=== PATIENT | female | born 1995 | race Caucasian/White ===

== ENCOUNTER 2019-08-11 23:18 | Emergency (ER) | payer MEDICAID, SELFPAY ==
[2019-08-11 23:29] VITALS: BP 121/76; PULSE 109; RESP 20; TEMP 37.7; O2SAT 96; BMI 39.3
--- NOTE | 2019-08-12 00:57 | XR_ITS ---
WS: [id number] XR chest 1V portable [id number] REASON FOR EXAM: cough/congestion FINDINGS: The heart and mediastinal interfaces normal. The lung howe are well aerated. There is no pneumonia, pleural effusion, pulmonary edema, mass effe ct, or pneumothorax. The hilum and apices normal. No osseous abnormalities. XR/XR chest 1V portable [id number] IMPRESSION: No active cardiopulmonary changes.
[2019-08-12] MEDS: albuterol 8 gm MDI 2 PUFF INHALATION (01:43)
[2019-08-12 01:44] VITALS: PULSE 120; RESP 18; O2SAT 95
[2019-08-12 01:47] LABS: Influenza A by IFA Negative (Negative); Influenza B by IFA Negative (Negative)
--- NOTE | 2019-08-12 01:52 | ED_ITS ---
HPI - URI/Sore Throat General: Chief Complaint: Upper Respiratory Infection Stated Complaint: COUGH Time Seen by Provider: 08/12/19 00:56 Source: patient Mode of arrival: ambulatory Limitations: no limitations History of Present Illness: HPI Narrative: Patient is a 24-year-old female who presents to ED today with complaints of a productive cough times a month. She complains of chills and sweating but no documented fevers. Complains of a sore throat. Reports pain in her chest with coughing. Denies sinus pain/pressure or nasal congestion. MD elicited complaint: cough Pertinent past history: asthma and other (QD smoker) Onset (ago): week(s) Consistency: intermittent Able to tolerate fluids by mouth: Yes Exacerbating factors: nothing Relieving factors: nothing Associated symptoms: Reports no associated symptoms and chills; Deny abdominal pain, chest pain (only when coughing ), diarrhea, ear or mastoid pain, fever(s), headache(s), nasal congestion, nausea, sinus pain or vomiting Treatments prior to arrival: none Review of Systems Const: Reports: chills; Denies: fever, body aches, change in appetite, change in weight, fatigue or malaise Eyes: Denies: change in vision, blurry vision, photophobia, eye discomfort or eye discharge ENMT: Reports: painful swallowing; Denies: throat pain, enlarged tonsils, swelling of lips/tongue, oral sores/lesions, ear pain, ear discharge, nasal discharge, nasal congestion, post nasal drip or facial/sinus pain Card: Denies: chest pain (only when coughing ), palpitations, irregular heart rhythm, edema, lightheadedness, syncope, pre-syncope or shortness of breath when lying down Resp: Reports: productive cough, pain on inspiration and chest congestion; Denies: shortness of breath, non-productive cough or coughing up blood GI: Denies: abdominal pain, nausea, vomiting or diarrhea Musc: Denies: neck pain or back pain Skin/Breast: Denies: rash Neuro: Denies: headache All/Imm: Denies: facial swelling or seasonal allergies PFSH ED PFSH: Social History Smoking and tobacco status: current every day smoker Physical Exam Const: COMMON NORMALS: no apparent distress, oriented x3, no limitations and alert NUTRITIONAL APPEARANCE: obese HENMT: COMMON NORMALS: normocephalic, head/scalp atraumatic, hearing grossly normal bilaterally, external ears normal, EAC's normal, TM's normal bilaterally, external nose normal, nasal mucous membranes and turbinates normal, moist oral mucous membranes and oropharynx normal HEAD & SCALP: normocephalic and atraumatic FACE & SINUS: normal facial exam and sinuses nontender NOSE: external nose normal and nasal mucous membranes and turbinates normal EXTERNAL EAR: Yes external ears normal EXTERNAL AUDITORY CANAL: EAC's normal TYMPANIC MEMBRANE: TM's normal bilaterally THROAT: posterior oropharynx normal, tonsils normal and uvula midline Eye: COMMON NORMALS: PERRL, EOMs intact bilaterally and conjunctivae normal CONJUNCTIVA: Yes conjunctivae normal PUPIL: Yes PERRL Neck/C-Spine: COMMON NORMALS: no lymphadenopathy Resp: COMMON NORMALS: normal respiratory effort AUSCULTATION: wheezes (faint-anterior KHANH, RUL) Cardio: COMMON NORMALS: regular rate and regular rhythm RATE: regular rate RHYTHM: regular rhythm Neuro: COMMON NORMALS: oriented x3 SENSORIUM/ORIENTATION: Yes alert Skin: COMMON NORMALS: no rashes or lesions noted GENERAL SKIN EXAM: no rashes or lesions noted Course Vital Signs: Vital signs: Vital Signs Temperature 99.9 F H 08/11/19 23:29 Pulse Rate 120 H 08/12/19 01:44 Respiratory Rate 18 08/12/19 01:44 Blood Pressure 121/76 08/11/19 23:29 Pulse Oximetry 95 08/12/19 01:44 MDM - URI/Sore Throat Lab Data: Labs: Lab Results 08/12/19 Range/Units 01:05 Influenza Type A A g Negative (Negative) POC Influenza B Ag Negative (Negative) Imaging Data^: CXR: My impression: NAD Discharge Plan Discharge Patient Disposition: Home, Self-Care Clinical Impression: Bronchitis Condition: Stable Prescriptions: New doxycycline hyclate 100 mg tablet 100 mg PO BID 7 Days Qty: 14 RF: 0 prednisone 10 mg tablet 60 mg PO DAILY 5 Days Qty: 30 RF: 0 Discharge Orders: Discharge Order (Routine); Ordered 08/12/19 Ordered By: Melisa Whiteside Referrals: Fallon Lang MD [Family Provider] - Discharge Diet: Usual diet Discharge Activity: Increase activity as tolerated Patient Instructions: Bronchitis (Acute) - Adult, Acute Bronchitis (ED) Activity Restrictions/Additional Instructions: Follow up with primary care in 1-2 week for continued symptoms. 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
[2019-08-12 02:10] VITALS: BP 133/74; PULSE 110; RESP 18; O2SAT 93
== END 2019-08-12 02:11 | disposition home or self-care (01) ==
PROVIDERS: Emergency Medicine; Emergency Provider Physician Assistant; Family Provider Family Medicine
DX: J45.909 Unspecified asthma, uncomplicated (principal); E66.9 Obesity, unspecified; Z68.39 Body mass index [BMI] 39.0-39.9, adult; F17.200 Nicotine dependence, unspecified, uncomplicated
CPT/HCPCS: 71045; 87804; 94640; 99281; 99283; J3535

== ENCOUNTER 2020-01-20 14:38 | Emergency (ER) | payer MEDICAID, SELFPAY ==
[2020-01-20 14:40] VITALS: BP 146/92; PULSE 102; RESP 18; TEMP 37.1; O2SAT 98; BMI 38.5
--- NOTE | 2020-01-20 14:42 | ED_ITS ---
HPI - Headache General: Chief Complaint: Head Injury Stated Complaint: really bad headache Time Seen by Provider: 01/20/20 14:42 History of Present Illness: HPI Narrative: 25-year-old female presents with headache. She has a history of migraines. She has not on anything for prophylaxis for migraine she was on several antihypertensives but stopped those. Describes the headaches as being bilateral in the frontal area. She gets nausea but no vomiting she does not have any photophobia or photophobia. This current headache started 3 days ago and is feeling progressively worse. She stopped her antihypertensive 2 days ago. She is taken Tylenol and various [id number] migraine preparations without any significant relief. MD elicited complaint: headache Onset (ago): day(s) (3) Onset description: gradually Location: frontal Severity: severe Quality & Timing: throbbing and pulsatile Exacerbating factors: none Relieving factors: nothing Associated symptoms: Reports weakness; Deny chest pain, cough, diaphoresis, eye pain, eye redness, fever(s), lightheadedness, loss of vision, malaise, nausea, neck stiffness, photophobia, rash, seizures, short of breath, sound sensitivity, syncope or vomiting Treatments prior to arrival: acetaminophen and migraine medication Review of Systems Const: Denies: fever(s), malaise or diaphoresis ENMT: Denies: throat pain, ear or mastoid pain, nasal discharge or nasal congestion Card: Denies: chest pain, lightheadedness or syncope Resp: Denies: dyspnea, productive cough or non-productive cough GI: Denies: nausea or vomiting : Denies: flank pain, difficulty voiding, dysuria, urinary frequency or urinary urgency Skin/Breast: Denies: rash PFSH ED PFSH: Medical History (Updated 01/21/20 @ 14:10 by Terrance Pierre DO) Hypertension Migraines Surgical History (Updated 01/21/20 @ 14:11 by Terrance Pierre DO) No history of previous surgery Social History Smoking and tobacco status: current every day smoker Physical Exam Const: COMMON NORMALS: no acute distress GENERAL APPEARANCE: cooperative and comfortable ORIENTATION/CONSCIOUSNESS: Yes awake, Yes oriented to person, Yes oriented to place and Yes oriented to time HENMT: COMMON NORMALS: normocephalic, atraumatic, hearing grossly normal bilaterally, external ears normal, EAC's normal, TM's normal bilaterally, Normal nasal mucous membranes and turbinates present, moist oral mucous membranes and oropharynx normal HEAD & SCALP: normocephalic and atraumatic NOSE: Normal nasal mucous membranes and turbinates present EXTERNAL EAR: Yes external ears normal EXTERNAL AUDITORY CANAL: EAC's normal TYMPANIC MEMBRANE: TM's normal bilaterally Eye: COMMON NORMALS: Equal, round and reactive pupils present, EOMs intact bilaterally, conjunctivae normal and no scleral icterus CONJUNCTIVA: Yes conjunctivae normal PUPIL: Yes Equal, round and reactive pupils present DIRECT OPHTHALMOSCOPY: No photophobia Neck/C-Spine: COMMON NORMALS: full ROM, no lymphadenopathy, supple and no JVD Lymph: LYMPHATIC: no lymphadenopathy noted and no lymphedema noted Resp: COMMON NORMALS: normal respiratory effort, No retractions, No use of accessory muscles and clear to auscultation bilaterally AUSCULTATION: clear to auscultation bilaterally Cardio: COMMON NORMALS: no JVD, regular rate, regular rhythm and No murmurs present (Cardio) RATE: regular rate RHYTHM: regular rhythm GI: COMMON NORMALS: Soft to palpation and No hepatosplenomegaly present AUSCULTATION: Yes normoactive bowel sounds PALPATION: Yes Soft to palpation, No Tenderness to palpation present (GI), No Guarding due to palpation present (GI) and Yes No hepatosplenomegaly present Extremity: COMMON NORMALS: normal to inspection, capillary refill normal, no clubbing, cyanosis or edema, no calf tenderness and no pedal edema Neuro: SENSORIUM/ORIENTATION: Yes oriented to person, Yes oriented to place and Yes oriented to time Skin: COMMON NORMALS: no rashes or lesions noted GENERAL SKIN EXAM: no rashes or lesions noted Course Vital Signs: Vital signs: Vital Signs Temperature 98.8 F 01/20/20 14:40 Pulse Rate 92 01/20/20 17:00 Respiratory Rate 14 01/20/20 17:00 Blood Pressure 112/70 01/20/20 17:00 Pulse Oximetry 100 01/20/20 17:00 MDM - Headache MDM Narrative: Medical decision making narrative: Headache improved after Depacon and IV fluids. Will discharge home on Topamax for prophylaxis promethazine for breakthrough however follow-up with primary care doctor for further medication adjustments will try to get her into see neurology as well. Return if has problems Lab Data: Labs: Lab Results 01/20/20 01/20/20 Range/Units 15:03 15:03 WBC 8.1 (4.0-10.0) 10^3/ uL RBC 4.66 (4.1-5.3) 10^6/u L Hgb 15.2 (11.5-15.3) g/dL Hct 44.7 (37.0-47.0) % MCV 95.9 (81-99) fL MCH 32.6 (28.0-34.0) pg MCHC 34.0 (30.0-36.0) g/dL RDW 12.1 (12.1-15.1) % Plt Count 273 (130-400) 10^3/c mm MPV 10.8 H (7.4-10.4) fL Neut % (Auto) 52.4 % Lymph % (Auto) 35.3 % Iron % (Auto) 4.1 % Eos % (Auto) 7.1 % Baso % (Auto) 0.7 % Neut # (Auto) 4.27 (1.8-7.7) 10^3/u L Lymph # (Auto) 2.9 (0.8-4.8) 10^3/u L Iron # (Auto) 0.3 (0.2-0.9) 10^3/u L Eos # (Auto) 0.6 (0.0-0.8) 10^3/u L Baso # (Auto) 0.1 (0.0-0.1) 10^3/u L Nucleated RBC % (a uto) 0 % Nucleated RBCs # 0.0 /100WBC Sodium 138 (136-145) mmol/L Potassium 4.2 (3.5-5.1) mmol/L Chloride 107 (98-107) mmol/L Carbon Dioxide 23 (22-29) mmol/L Anion Gap 12.2 (5-19) BUN 8 (6-20) mg/dL Creatinine 0.7 (0.5-0.9) mg/dL GFR Calculation 100.4 (90-130) mL/min Glucose 125 H (65-115) mg/dL Calculated Osmolal ity 283 L (285-295) mOsm/k g Calcium 9.4 (8.5-10.5) mg/dL Total Bilirubin 0.5 (0.15-1.2) mg/dL AST 27 (0-32) U/L ALT 27 (0-33) U/L Alkaline Phosphata se 105 (35-105) IU/L Total Protein 6.9 (6.6-8.7) g/dL Albumin 4.6 (3.5-5.2) g/dL Globulin 2.3 (1.3-4.6) g/dL Discharge Plan Discharge Patient Disposition: Home Clinical Impression: Migraine Condition: Stable Prescriptions: New Topamax 25 mg tablet 25 mg PO DAILY Qty: 30 RF: 0 promethazine 25 mg tablet 25 mg PO Q6H PRN (Reason: headache) Qty: 30 RF: 0 No Action medroxyprogesterone 1 tab PO DAILY RF: 0 Tylenol 325 mg Tablet 325 - 650 mg PO PRN PRN (Reason: Pain) RF: 0 Discharge Orders: Discharge Order (Routine); Ordered 01/20/20 Ordered By: Terrance Pierre Discharge Diet: Usual diet Discharge Activity: Increase activity as tolerated Activity Restrictions/Additional Instructions: Follow-up with your primary care doctor within 1 to 2 weeks. 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
--- NOTE | 2020-01-20 14:58 | CT_ITS ---
WS: [id number] CT HEAD TECHNIQUE: Noncontrast CT of the head obtained from the skullbase to the vertex. CLINICAL INFORMATION: recurrent headaches COMPARISON: None. DLP: 805.[address] scans at [facility] use at least one of these dose optimization techniques: automat ed exposure control; mA and/or kV adjustment per patient size (includes targeted exams where dose is matched to clinical indication); or iterative reconstruction. FINDINGS: No evidence of intracranial hemorrhage or mass effect. Ventricular system and basal cisterns are lakhani nt.No extra-axial fluid collections. No evidence of mass or mass effect. Normal woods-white differenti ation. Paranasal sinuses and mastoid air cells are well aerated. Mild mucosal thickening left sphenoid sinus . .Normal visualized soft tissues. Notified Terrance Pierre DO at 01/20/2020 4:[address]/CT head wo con* [id number] IMPRESSION: 1. No evidence of intracranial hemorrhage or mass effect. 2. Normal woods-white differentiation. 3. No acute intracranial findings.
[2020-01-20 15:11] LABS: Basophils # 0.1 10^3/uL (0.0-0.1); Basophils % 0.7 %; Eosinophils # 0.6 10^3/uL (0.0-0.8); Eosinophils % 7.1 %; Hematocrit 44.7 % (37.0-47.0); Hemoglobin 15.2 g/dL (11.5-15.3); Lymphocytes # 2.9 10^3/uL (0.8-4.8); Lymphocytes % 35.3 %; Mean Corpuscular Hemoglobin 32.6 pg (28.0-34.0); Mean Corpuscular Volume 95.9 fL (81-99); Mean Platelet Volume 10.8 fL (7.4-10.4); Monocytes # 0.3 10^3/uL (0.2-0.9); Monocytes % 4.1 %; Neutrophils # 4.27 10^3/uL (1.8-7.7); Neutrophils % 52.4 %; Nucleated Red Blood Cells % 0 %; Platelet Count 273 10^3/cmm (130-400); Red Blood Count 4.66 10^6/uL (4.1-5.3); Red Cell Distribution Width 12.1 % (12.1-15.1); White Blood Count 8.1 10^3/uL (4.0-10.0)
[2020-01-20] MEDS: sodium chloride 0.9% 1,000 ML 999 ML IV (15:23)
[2020-01-20] MEDS: metoclopramide 5 mg/mL SDV 2 mL 10 MG IVP (15:24)
[2020-01-20] MEDS: ketorolac 30 mg/mL INJ IVP (15:26)
[2020-01-20 15:28] LABS: Alanine Aminotransferase 27 U/L (0-33); Albumin Level 4.6 g/dL (3.5-5.2); Alkaline Phosphatase 105 IU/L (35-105); Blood Urea Nitrogen 8 mg/dL (6-20); Calcium 9.4 mg/dL (8.5-10.5); Carbon Dioxide 23 mmol/L (22-29); Chloride 107 mmol/L (98-107); Creatinine Clr Calc Pharmacy 156.8801; Globulin 2.3 g/dL (1.3-4.6); Glomerular Filtration Rate 100.4 mL/min (90-130); Glucose 125 mg/dL (65-115); Osmolality Calculated 283 mOsm/kg (285-295); Sodium 138 mmol/L (136-145); Total Bilirubin 0.5 mg/dL (0.15-1.2); Total Protein 6.9 g/dL (6.6-8.7)
[2020-01-20 15:30] LABS: Anion Gap 12.2 (5-19)
[2020-01-20] MEDS: valproic acid inj 500 MG in sodium chloride 0.9% 50 ML 55 MG IV (15:30)
[2020-01-20 15:31] LABS: Aspartate Amino Transferase 27 U/L (0-32); Potassium 4.2 mmol/L (3.5-5.1)
[2020-01-20 16:06] VITALS: BP 133/84; PULSE 95; RESP 14; O2SAT 100
[2020-01-20 17:00] VITALS: BP 112/70; PULSE 92; RESP 14; O2SAT 100
--- NOTE | 2020-01-21 12:35 | DCPLANNER ---
home health care case manager had message to schedule a follow up appointment for patient with Dr. Lima. home health care case manager called the office of Dr. Lima, spoke with Nayana, gave clinic patients information. A follow up appointment was scheduled for Monday, January 27, 2020 at 8:00 with Luke. Clinic will call patient with appointment information.
--- NOTE | 2020-02-21 15:52 | DCPLANNER ---
Patient did attend appointment scheduled for 01.27.[address] Lima.
== END 2020-01-20 17:01 | disposition home or self-care (01) ==
PROVIDERS: Emergency Provider Family Medicine
DX: G43.909 Migraine, unspecified, not intractable, without status migrainosus (principal); I10 Essential (primary) hypertension; F17.210 Nicotine dependence, cigarettes, uncomplicated
CPT/HCPCS: 12345; 70450; 80053; 85025; 96365; 96366; 96375; 99282; 99284; J1885; J2765; J7030

== ENCOUNTER → 2020-01-27 07:59 | Outpatient (BNVA) | payer MEDICAID, SELFPAY | PROVIDERS: Visit Provider Nurse Practitioner | DX: G43.909 Migraine, unspecified, not intractable, without status migrainosus (principal) | CPT/HCPCS: 99204 ==

== ENCOUNTER 2020-01-27 09:36 | Outpatient (CLI) | payer MEDICAID, SELFPAY ==
[2020-01-27 11:04] LABS: Thyroid Stimulating Hormone 1.57 uIU/mL (0.27-4.20)
== END 2020-01-27 09:37 | disposition home or self-care (01) ==
LOC: LAB 09:40
PROVIDERS: PCP Family Medicine; Visit Provider Nurse Practitioner
DX: G43.909 Migraine, unspecified, not intractable, without status migrainosus (principal)
CPT/HCPCS: 36415; 84443

== ENCOUNTER 2020-02-05 09:05 | Outpatient (CLI) | payer MEDICAID, SELFPAY ==
[2020-02-05] MEDS: iohexol 350 mg/mL 100 mL Btl IV (09:39)
--- NOTE | 2020-02-05 10:00 | CT_ITS ---
WS: [id number] CTA HEAD TECHNIQUE: Contrast enhanced CTA of the head with coronal and sagittal reformatted images and maximum intensity projection (MIP) images. NASCET criteria utilized. CLINICAL INFORMATION: Headache COMPARISON: CT January 20, 2020 DLP: 1315.[address] scans at [facility] use at least one of these dose optimization techniques: automat ed exposure control; mA and/or kV adjustment per patient size (includes targeted exams where dose is matched to clinical indication); or iterative reconstruction. FINDINGS: Noncontrast CT demonstrates no evidence of intracranial hemorrhage or mass effect. Ventricu lar system and basal cisterns are patent. Normal woods-white differentiation. Normal sagittal sinus. Transverse sinuses are normal. Normal sigmoid sinuses. Normal straight sinus a nd internal cerebral veins. Normal torcula. No evidence of dural sinus thrombosis. No filling defects . Basilar artery is patent. Anterior dominant circulation with persistent bilateral chemical treatment plant technician. Normal vascularity to the REHANGER territory bilaterally. Both ICAs are patent at the skull base. Normal vascularity to the ANDRES and MCA territories bilaterally . No evidence of high-grade proximal stenosis. Paranasal sinuses and mastoid air cells are well aerated. CT/CT angio head [id number] IMPRESSION: 1. No evidence of dural sinus thrombosis. No filling defects. 2. No evidence of intracranial hemorrhage or mass effect. Normal woods-white di fferentiation. 3. Persistent bilateral chemical treatment plant technician with normal variant anterior dominant circulation 4. No flow-limiting intracranial arterial stenosis
== END 2020-02-05 09:06 | disposition home or self-care (01) ==
LOC: CT 09:07
PROVIDERS: PCP Family Medicine; Visit Provider Nurse Practitioner
DX: R51 Headache (principal)
CPT/HCPCS: 70496

== ENCOUNTER 2020-12-20 12:44 | Emergency (ER) | payer BC, MEDICAID, SELFPAY ==
[2020-12-20 13:13] VITALS: BP 124/82; PULSE 98; RESP 18; TEMP 37.2; O2SAT 97; BMI 36.6
[2020-12-20 13:32] LABS: Add Urine Microscopic? NO; Charge for UA Resulting for Rev
[2020-12-20 13:33] LABS: Urine Color Yellow (Yellow)
[2020-12-20 13:34] LABS: Bilirubin Urine 1+ (Negative); Blood Urine Neg (Negative); Glucose Urine UA Norm (Normal); HCG Qualitative Urine. Positive (Negative); Ketones Urine 2+ (Negative); Leukocyte Esterase Urine Negative (Negative); Nitrate Urine Negative (Negative); Protein Urine Neg (Negative); Urine Appearance Clear (CLEAR); Urobilinogen Urine 1 mg/dL (Negative); pH Urine 6 (5-7)
--- NOTE | 2020-12-20 13:37 | USR_ITS ---
PROCEDURE INFORMATION: Exam: US First Trimester, Transabdominal Exam date and time: 12/20/2020 1:37 PM Age: 25 years old Clinical indication: complicated by abdominal or pelvic pain; Lower; First trimester; Gestational age or lmp: 9 weeks 3 days (by US today); ; Additional info: Vag pain preg TECHNIQUE: Imaging protocol: Real-time transabdominal obstetrical ultrasound of the maternal pelvis and a first trimester , less than 14 weeks 0 days, with image documentation. COMPARISON: [facility] OB > 14 weeks 10/23/2017 3:02 PM FINDINGS: Gestation: Yolk sac 0.57 cm Embryonic/ heart rate: heart rate 153 bpm. Extra-embryonic membranes/Placenta: Subchorionic hemorrhage measuring 0.6 x 1.7 x 3.9 cm estimated under 50% circumference of the gestational sac. Amniotic fluid: Amniotic fluid is normal for gestational age. BIOMETRY: Gestational age (AUA): Estimated gestational age of 9 weeks 3 days. [place]-Rump length: [place]-rump length 2.63 cm MATERNAL: Uterus: Unremarkable. Cervix: Unremarkable. Right adnexa: Unremarkable. Left adnexa: Unremarkable. Intraperitoneal space: No intraperitoneal free fluid. US/US OB <=14 wk fetus w transvag IMPRESSION: 1. Live intrauterine with estimated gestational age of 9 weeks 3 days. 2. Subchorionic hemorrhage extending less than 50% of the circumference of the gestational sac.
[2020-12-20 13:51] VITALS: BP 133/83; PULSE 81; RESP 18; O2SAT 97
[2020-12-20 13:54] LABS: SARS Covid-2 Antigen Negative (Negative)
[2020-12-20 14:21] VITALS: BP 125/63; PULSE 68; RESP 18; O2SAT 74
[2020-12-20 14:30] VITALS: BP 133/83; PULSE 79; RESP 18; O2SAT 98
[2020-12-20 15:00] VITALS: BP 125/64; PULSE 79; RESP 18; O2SAT 99
--- NOTE | 2020-12-20 16:30 | W.ED.ABDPA2 ---
Documented by User: Elsa Vijaytunde 12/20/20 16:37 HPI - Abdominal Pain General: Chief Complaint: Abdominal Pain Stated Complaint: , abdominal pain Time Seen by Provider: 12/20/20 13:31 Source: patient Mode of arrival: ambulatory Limitations: no limitations History of Present Illness: HPI narrative: 25-year-old female patient presents to the emergency department complaining of daughter jumping on her and landing on her belly. Patient states she is does not know how far along states she wants to make sure everything is okay with baby. Patient denies any back pain vaginal bleeding vaginal pain. Patient states she did have some pain when daughter jumped on her abdomen but pain has resolved at this time Associated Symptoms: Denies change in bowel habits, chills, constipation, GI cramping, diarrhea, dysuria, fever(s), hematuria, hematemesis, nausea, syncope and vomiting Review of Systems Const: Denies: fever(s), chills, body aches, change in appetite, change in weight, fatigue, malaise or diaphoresis Eyes: Denies: change in vision, blurry vision, blind spots, photophobia, eye discomfort, eye discharge, eye redness, floaters or seeing flashes ENMT: Denies: throat pain, uvular edema, enlarged tonsils, odynophagia, hoarseness, mouth pain, swelling of lips/tongue, oral sores, bleeding gums, dental pain, dry mouth, ear or mastoid pain, ear discharge, change in hearing, tinnitus, disequilibrium, nasal discharge, nasal congestion, post nasal drip or sinus pain Card: Denies: chest pain, palpitations, irregular heart rhythm, edema, swelling of feet/ankles, lightheadedness, syncope, pre-syncope, dyspnea on exertion, orthopnea, leg pain with exertion or acrocyanosis Resp: Denies: dyspnea, productive cough, non-productive cough, wheezing, stridor, pain on inspiration, change in phlegm color, hemoptysis or chest congestion GI: Denies: abdominal pain, nausea, vomiting, hematemesis, dysphagia, diarrhea, constipation, GI cramping, change in bowel habits or rectal pain : Denies: flank pain, difficulty voiding, dysuria, urinary frequency, urinary urgency, urinary hesitancy or hematuria Musc: Denies: neck pain, back pain, extremity pain, extremity swelling, joint pain, joint swelling, joint redness, joint warmth or deformity Skin/Breast: Denies: rash, pruritus, erythema, sores, new lesions, changes in skin color or dry skin Neuro: Denies: headache(s), numbness in extremities, weakness in extremities, sensory changes, lack of coordination, difficulty walking, frequent falls, dizziness, vertigo, confusion, behavioral changes, Slurred speech present, difficulty communicating thoughts or seizure-like activity Psych: Denies: anxiety, depression, suicidal ideation or homicidal ideation Endo: Denies: polyuria, polydipsia, tired all the time, cold intolerance, excessive sweating, flushing, hot flashes or heat intolerance Mukund/Lymph: Denies: easy bruising, easy bleeding, petechiae, purpura, enlarged lymph nodes or tender lymph nodes All/Imm: Denies: urticaria, throat swelling, tongue swelling, facial swelling, acute wheezing or itchy eyes PFSH ED PFSH: Medical History Hypertension Intractable headache Migraines Surgical History No history of previous surgery Family History Mother Stroke Social History Smoking and tobacco status: current every day smoker cigarettes History of recent travel: No Female Reproductive History: : 3 Physical Exam Const: COMMON NORMALS: no acute distress, average body habitus, patient oriented x3, no limitations, healthy appearing, alert and well nourished HENMT: COMMON NORMALS: normocephalic, atraumatic, hearing grossly normal bilaterally, external ears normal, EAC's normal, TM's normal bilaterally, Normal external nose present, Normal nasal mucous membranes and turbinates present, moist oral mucous membranes, oropharynx normal, dentition normal and gingiva normal HEAD & SCALP: normocephalic and atraumatic NOSE: Normal external nose present and Normal nasal mucous membranes and turbinates present EXTERNAL EAR: Yes external ears normal EXTERNAL AUDITORY CANAL: EAC's normal TYMPANIC MEMBRANE: TM's normal bilaterally THROAT: no uvular edema GI: COMMON NORMALS: Normal to inspection, nondistended, normoactive bowel sounds present, Soft to palpation, non-tender, No hepatosplenomegaly present, no masses and no bruits PALPATION: Yes Soft to palpation and Yes No hepatosplenomegaly present : COMMON NORMALS: Yes normal external appearance, Yes normal appearance of the vagina, Yes normal appearance of the cervix, Yes No adnexal tenderness and Yes no masses Neuro: COMMON NORMALS: patient oriented x3 SENSORIUM/ORIENTATION: Yes alert Psych: COMMON NORMALS: mental status grossly normal, Normal thought process present, cooperative, normal affect, speech normal, activity/motor behavior normal, denies hallucinations, denies homicidal ideation and denies suicidal ideation SPEECH: Yes normal speech THOUGHT PROCESS: Normal thought process present Course Vital Signs: Vital signs: Vital Signs Temperature 98.9 F 12/20/20 13:13 Pulse Rate 79 12/20/20 16:51 Respiratory Rate 18 12/20/20 16:51 Blood Pressure 125/64 12/20/20 16:51 Pulse Oximetry 99 12/20/20 16:51 MDM - Abdominal Pain MDM Narrative: Medical decision making narrative: Pt is well appearing non toxic and in no acute distress. Patient did not have any vaginal bleeding or vaginal pain patient and not have any pain with palpitation upon exam to abdomen. I did do an ultrasound which shows rdering Provider/Ordering MD: Elsa Cevallos NP Date of Service: 12/20/20 Procedure(s): US OB <=14 wk fetus w transvag Accession Number(s): [id number] Report Number: [id number] PROCEDURE INFORMATION: Exam: US First Trimester, Transabdominal Exam date and time: 12/20/2020 1:37 PM Age: 25 years old Clinical indication: complicated by abdominal or pelvic pain; Lower; First trimester; Gestational age or lmp: 9 weeks 3 days (by US today); ; Additional info: Vag pain preg TECHNIQUE: Imaging protocol: Real-time transabdominal obstetrical ultrasound of the maternal pelvis and a first trimester , less than 14 weeks 0 days, with image documentation. COMPARISON: [facility] OB > 14 weeks 10/23/2017 3:02 PM FINDINGS: Gestation: Yolk sac 0.57 cm Embryonic/ heart rate: heart rate 153 bpm. Extra-embryonic membranes/Placenta: Subchorionic hemorrhage measuring 0.6 x 1.7 x 3.9 cm estimated under 50% circumference of the gestational sac. Amniotic fluid: Amniotic fluid is normal for gestational age. BIOMETRY: Gestational age (AUA): Estimated gestational age of 9 weeks 3 days. Enoch-Rump length: Enoch-rump length 2.63 cm MATERNAL: Uterus: Unremarkable. Cervix: Unremarkable. Right adnexa: Unremarkable. Left adnexa: Unremarkable. Intraperitoneal space: No intraperitoneal free fluid. US/US OB <=14 wk fetus w transvag IMPRESSION: 1. Live intrauterine with estimated gestational age of 9 weeks 3 days. 2. Subchorionic hemorrhage extending less than 50% of the circumference of the gestational sac. I discussed these findings with patient. Patient states she had this with her last . Patient states she already has an appointment with her OB. Advised patient to keep this follow-up appointment. Patient again has no complaints patient is pain-free patient does not have any vaginal bleeding. Do not feel any further testing is warranted at this time. I did discuss home care and follow-up with patient patient agrees to plan. Lab Data: Labs: Lab Results 12/20/20 12/20/20 12/20/20 Range/Units 13:21 13:27 13:27 HCG, Qual Positive H (Negative) Ser , Zachary i-Qnt mIU/mL Urine Color Yellow (Yellow) Urine Appearance Clear (CLEAR) Urine pH 6 (5-7) Ur Specific Gravit y 1.020 (1.005-1.030) Urine Protein Neg (Negative) Urine Glucose (UA) Norm (Normal) Urine Ketones 2+ H (Negative) Urine Blood Neg (Negative) Urine Nitrate Negative (Negative) Urine Bilirubin 1+ H (Negative) Urine Urobilinogen 1 H (Negative) mg/dL Ur Leukocyte Jewell ase Negative (Negative) SARS-CoV-2 Ag (Rap id) Negative (Negative) 12/20/20 Range/Units 14:25 HCG, Qual (Negative) Ser , Zachary i-Qnt 06632.00 mIU/mL Urine Color (Yellow) Urine Appearance (CLEAR) Urine pH (5-7) Ur Specific Gravit y (1.005-1.030) Urine Protein (Negative) Urine Glucose (UA) (Normal) Urine Ketones (Negative) Urine Blood (Negative) Urine Nitrate (Negative) Urine Bilirubin (Negative) Urine Urobilinogen (Negative) mg/dL Ur Leukocyte Jewell ase (Negative) SARS-CoV-2 Ag (Rap id) (Negative) Discharge Plan Discharge Patient Disposition: Home Clinical Impression: confirmed by positive blood test Subchorionic hemorrhage in first trimester Qualifiers: Fetus number: single or unspecified fetus Qualified Code(s): O41.8X10 - Other specified disorders of amniotic fluid and membranes, first trimester, not applicable or unspecified Condition: Stable Prescriptions: No Action propranolol 80 mg tablet 80 mg PO BID RF: 0 Topamax 50 mg tablet 50 mg PO BID Qty: 60 RF: 0 ketorolac 10 mg tablet 10 mg PO Q6H PRN (Reason: pain) 5 Days Qty: 20 RF: 0 prednisone 10 mg tablet 10 mg PO DAILY Qty: 10 RF: 0 medroxyprogesterone 1 tab PO DAILY RF: 0 Tylenol 325 mg Tablet 325 - 650 mg PO PRN PRN (Reason: Pain) RF: 0 promethazine 25 mg tablet 25 mg PO Q6H PRN (Reason: headache) Qty: 30 RF: 0 Discharge Orders: Discharge ED (Routine); Ordered 12/20/20 Ordered By: Elsa Cevallos Other Ambulatory Orders: DME: Oxygen (Order) Timeframe: 1 Month Facility: [facility] - Location: Emergency Room Ordered By: Elsa Cevallos Referrals: Fallon Lang MD [Primary Care Provider] - Patient Instructions: Opioid Safety Activity Restrictions/Additional Instructions: PLease keep your OBGYN appointment as scheduled and return to ER with any abd pain, vaginal bleeding or any other concerns Coding Level of Care Code ED Field Sales Specialist for Chg Fwd Exam Detailed Documented by User: Elin El[place] [facility] [place]25/[place] 18:50 HPI - Abdominal Pain General: Chief Complaint: Abdominal Pain Stated Complaint: , abdominal pain Time Seen by Provider: 12/20/20 13:31 PFSH ED PFSH: Medical History Hypertension Intractable headache Migraines Surgical History No history of previous surgery Family History Mother Stroke Social History Smoking and tobacco status: current every day smoker cigarettes History of recent travel: No Course Vital Signs: Vital signs: Vital Signs Temperature 98.9 F 12/20/20 13:13 Pulse Rate 79 12/20/20 16:51 Respiratory Rate 18 12/20/20 16:51 Blood Pressure 125/64 12/20/20 16:51 Pulse Oximetry 99 12/20/20 16:51 MDM - Abdominal Pain MDM Narrative: Medical decision making narrative: Kindly see the mid level provider's note for complete history and examination. I agree with her clinical findings and her decision making. Essentially this 25 year old female who had minor trauma to her abdomen. She is in her first trimester. Evaluation unremarkable, and US showed a minor subchorionic hemorrhage. Patient is advised to f/u with an closing machine operator and to avoid strenuous activities. Medical Records: Attestation: I reviewed the patient's medical records. Lab Data: Attestation: I reviewed the patient's lab results. Labs: Lab Results 12/20/20 12/20/20 12/20/20 Range/Units 13:21 13:27 13:27 HCG, Qual Positive H (Negative) Ser , Zachary i-Qnt mIU/mL Urine Color Yellow (Yellow) Urine Appearance Clear (CLEAR) Urine pH 6 (5-7) Ur Specific Gravit y 1.020 (1.005-1.030) Urine Protein Neg (Negative) Urine Glucose (UA) Norm (Normal) Urine Ketones 2+ H (Negative) Urine Blood Neg (Negative) Urine Nitrate Negative (Negative) Urine Bilirubin 1+ H (Negative) Urine Urobilinogen 1 H (Negative) mg/dL Ur Leukocyte Jewell ase Negative (Negative) SARS-CoV-2 Ag (Rap id) Negative (Negative) 12/20/20 Range/Units 14:25 HCG, Qual (Negative) Ser , Zachary i-Qnt 70794.00 mIU/mL Urine Color (Yellow) Urine Appearance (CLEAR) Urine pH (5-7) Ur Specific Gravit y (1.005-1.030) Urine Protein (Negative) Urine Glucose (UA) (Normal) Urine Ketones (Negative) Urine Blood (Negative) Urine Nitrate (Negative) Urine Bilirubin (Negative) Urine Urobilinogen (Negative) mg/dL Ur Leukocyte Jewell ase (Negative) SARS-CoV-2 Ag (Rap id) (Negative) Imaging Data ^: US OB: Attestation: I personally reviewed and interpreted this imaging study as follows: Radiologist's impression: [email or web address] [place], [place] [id number] ReportSigned Patient: Jojo Mandujano #: [id number]: 1995Acct#:[id number]/Sex: 25 / FADM Date: 12/20/20Loc: ERRoom/Bed:Attending Dr: Ordering Provider/Ordering MD: Elsa Cevallos NP Date of Service: 12/20/20 Procedure(s): US OB <=14 wk fetus w transvag Accession Number(s): [id number] Report Number: [id number] PROCEDURE INFORMATION: Exam: US First Trimester, Transabdominal Exam date and time: 12/20/2020 1:37 PM Age: 25 years old Clinical indication: complicated by abdominal or pelvic pain; Lower; First trimester; Gestational age or lmp: 9 weeks 3 days (by US today); ; Additional info: Vag pain preg TECHNIQUE: Imaging protocol: Real-time transabdominal obstetrical ultrasound of the maternal pelvis and a first trimester , less than 14 weeks 0 days, with image documentation. COMPARISON: [facility] [place] OB > 14 weeks 10/23/2017 3:02 PM FINDINGS: Gestation: Yolk sac 0.57 cm Embryonic/ heart rate: heart rate 153 bpm. Extra-embryonic membranes/Placenta: Subchorionic hemorrhage measuring 0.6 x 1.7 x 3.9 cm estimated under 50% circumference of the gestational sac. Amniotic fluid: Amniotic fluid is normal for gestational age. BIOMETRY: Gestational age (AUA): Estimated gestational age of 9 weeks 3 days. Enoch-Rump length: Enoch-rump length 2.63 cm MATERNAL: Uterus: Unremarkable. Cervix: Unremarkable. Right adnexa: Unremarkable. Left adnexa: Unremarkable. Intraperitoneal space: No intraperitoneal free fluid. US/US OB <=14 wk fetus w transvag IMPRESSION: 1. Live intrauterine with estimated gestational age of 9 weeks 3 days. 2. Subchorionic hemorrhage extending less than 50% of the circumference of the gestational sac. Dictated By:Panda Long DOSigned By:Panda Long DOSigned Date/Time:12/20/20 1532DD/ 1531 Discharge Plan Discharge Patient Disposition: Home Clinical Impression: confirmed by positive blood test Subchorionic hemorrhage in first trimester Qualifiers: Fetus number: single or unspecified fetus Qualified Code(s): O41.8X10 - Other specified disorders of amniotic fluid and membranes, first trimester, not applicable or unspecified Condition: Stable Prescriptions: No Action propranolol 80 mg tablet 80 mg PO BID RF: 0 Topamax 50 mg tablet 50 mg PO BID Qty: 60 RF: 0 ketorolac 10 mg tablet 10 mg PO Q6H PRN (Reason: pain) 5 Days Qty: 20 RF: 0 prednisone 10 mg tablet 10 mg PO DAILY Qty: 10 RF: 0 medroxyprogesterone 1 tab PO DAILY RF: 0 Tylenol 325 mg Tablet 325 - 650 mg PO PRN PRN (Reason: Pain) RF: 0 promethazine 25 mg tablet 25 mg PO Q6H PRN (Reason: headache) Qty: 30 RF: 0 Discharge Orders: Discharge ED (Routine); Ordered 12/20/20 Ordered By: Elsa Cevallos Other Ambulatory Orders: DME: Oxygen (Order) Timeframe: 1 Month Facility: [facility] - Location: Emergency Room Ordered By: Elsa Cevallos Referrals: Fallon Lang MD [Primary Care Provider] - Patient Instructions: Opioid Safety Activity Restrictions/Additional Instructions: PLease keep your OBGYN appointment as scheduled and return to ER with any abd pain, vaginal bleeding or any other concerns Coding Level of Care Code ED Field Sales Specialist for Chg Fwd Exam Detailed
[2020-12-20 16:51] VITALS: BP 125/64; PULSE 79; RESP 18; O2SAT 99
== END 2020-12-20 16:35 | disposition home or self-care (01) ==
PROVIDERS: Emergency Provider Registered Nurse; PCP Family Medicine
DX: O41.8X10 Other specified disorders of amniotic fluid and membranes, first trimester, not applicable or unspecified (principal); O10.911 Unspecified pre-existing hypertension complicating pregnancy, first trimester; O99.331 Smoking (tobacco) complicating pregnancy, first trimester; F17.210 Nicotine dependence, cigarettes, uncomplicated; Z3A.09 9 weeks gestation of pregnancy; Z20.822 Contact with and (suspected) exposure to COVID-19
CPT/HCPCS: 76801; 76817; 81003; 81025; 84702; 87426; 99284

== ENCOUNTER 2021-07-14 08:45 | Outpatient (CLI) | payer BC, MEDICAID, SELFPAY ==
[2021-07-14 09:10] VITALS: BP 131/65; PULSE 92
[2021-07-14 09:14] VITALS: RESP 16
[2021-07-14 09:15] VITALS: BMI 32.5
[2021-07-14 09:25] VITALS: BP 129/69; PULSE 96
[2021-07-14 09:40] VITALS: BP 128/68; PULSE 81
[2021-07-14 09:55] VITALS: BP 131/68; PULSE 85
== END 2021-07-14 10:18 | disposition home or self-care (01) ==
LOC: OPOB 08:53 → OBGYN 08:54
PROVIDERS: PCP Family Medicine; Visit Provider Family Medicine
DX: O67.9 Intrapartum hemorrhage, unspecified (principal); Z3A.00 Weeks of gestation of pregnancy not specified
CPT/HCPCS: 59025; 99211

== ENCOUNTER 2021-07-15 23:57 | Inpatient (IN) | payer BC, MEDICAID, SELFPAY ==
[2021-07-15 21:39] VITALS: RESP 16
[2021-07-15 21:42] VITALS: BP 115/75; PULSE 100
[2021-07-15 21:59] VITALS: BMI 33.6
[2021-07-15 22:01] VITALS: BP 107/70; PULSE 100
[2021-07-15 22:03] LABS: Actim Prom Negative
[2021-07-15 23:14] VITALS: BP 109/66; PULSE 95
[2021-07-15 23:49] VITALS: RESP 16
[2021-07-16] VITALS (35 sets, daily range): BP systolic 101–143; BP diastolic 54–95; PULSE 64–164; RESP 16–18; TEMP 35.9–36.8; O2SAT 97–100
[2021-07-16 00:42] LABS: Basophils # 0.1 10^3/uL (0.0-0.1); Basophils % 0.4 %; Eosinophils # 0.3 10^3/uL (0.0-0.8); Eosinophils % 2.4 %; Lymphocytes # 2.5 10^3/uL (0.8-4.8); Lymphocytes % 18.9 %; Mean Corpuscular HGB Conc 34.2 g/dL (30.0-36.0); Mean Corpuscular Hemoglobin 32.9 pg (28.0-34.0); Mean Corpuscular Volume 96.2 fl (81-99); Mean Platelet Volume 10.5 fL (7.4-10.4); Monocytes # 0.8 10^3/uL (0.2-0.9); Neutrophils # 9.44 10^3/uL (1.8-7.7); Neutrophils % 71.6 %; Nucleated Red Blood Cells % 0 %; Platelet Count 210 10^3/cmm (130-400); Red Blood Count 3.95 10^6/uL (4.1-5.3); Red Cell Distribution Width 12.6 % (12.1-15.1); White Blood Count 13.2 10^3/uL (4.0-10.0)
[2021-07-16] MEDS: oxytocin 30 UNIT/500 ML BAG IV (09:50)
--- NOTE | 2021-07-16 09:58 | PM.OPHPUD ---
Labor & Delivery H&P Update Date of Procedure: July 16, 2021 Date H&P Performed: 07/13/21 Admission Diagnosis: Vaginal bleeding Other information: Patient presented to labor and delivery at 39 weeks 1 day gestation complaining of bright red vaginal bleeding. She had minimal bloody show and was found to be shantel regularly on the monitor. heart tones were reassuring. She was monitored for 2 hours to assess her bleeding, which was not active. In the 2 hours she made some cervical change and was kept for active labor.
[2021-07-16] MEDS: dextrose 5%-lactated ringers 1,000 ML 125 ML IV (10:18)
--- NOTE | 2021-07-16 11:45 | PM.DELIVERY ---
Delivery Note: Date of delivery: July 16, 2021 Estimated blood loss (mL): 250 Pre-Delivery Course: She had routine care at [facility]. There were no complications during the . Delivery: This is a 26-year-old G3, P2 at 39 weeks 1 day gestation who presented complaining of vaginal bleeding. She was found to be shantel regularly and had minimal bloody discharge. She is making cervical change although very slowly. She declined pain management. When she was 6 cm dilated she underwent artificial rupture of membranes with clear fluid. Her contractions were still palpating minimal and she was not making much cervical change so she was started on Pitocin. She had a normal spontaneous vaginal delivery of a viable female infant weight 6 pounds 14 ounces, 3120 g over an intact perineum. The infant was suctioned at delivery and placed on the mother's chest. The cord was clamped and cut. Placenta was delivered grossly intact and normal to inspection. There was a very small first-degree perineal laceration that did not require suturing. Mother and were doing well after delivery. A&P Assessment and plan (1) (normal spontaneous vaginal delivery): Routine care Status: Acute Coding Level of Care Code Acute Manager Program for Chg Fwd Diagnoses (normal spontaneous vaginal delivery) O80
[2021-07-16] MEDS: ibuprofen 800 mg tablet PO ×2 (14:14→21:14)
[2021-07-16] MEDS: lanolin oint 7 gm 1 APPLIC TOPICAL (14:15)
[2021-07-16] MEDS: benzocaine-menthol 78 gm Canister 1 SPRAY TOPICAL (14:16)
--- NOTE | 2021-07-16 14:30 | PC.NURSE ---
patient ambulated to room OB 7 without difficulty. Oriented to room, proud parent pack explained.
[2021-07-16] MEDS: docusate sodium 100 mg Capsule PO (18:46)
[2021-07-17 00:16] LABS: Hematocrit 31.8 % (37.0-47.0); Hemoglobin 10.7 g/dL (11.5-15.3); Mean Corpuscular HGB Conc 33.6 g/dL (30.0-36.0); Mean Corpuscular Hemoglobin 32.5 pg (28.0-34.0); Mean Corpuscular Volume 96.7 fl (81-99); Mean Platelet Volume 10.1 fL (7.4-10.4); Platelet Count 192 10^3/cmm (130-400); Red Blood Count 3.29 10^6/uL (4.1-5.3); Red Cell Distribution Width 12.8 % (12.1-15.1); White Blood Count 12.3 10^3/uL (4.0-10.0)
[2021-07-17 01:30] VITALS: BP 108/51; PULSE 79; RESP 16; O2SAT 98
[2021-07-17 04:55] VITALS: BP 101/51; PULSE 79; RESP 16; O2SAT 98
[2021-07-17] MEDS: ibuprofen 800 mg tablet PO (08:36)
[2021-07-17] MEDS: docusate sodium 100 mg Capsule PO (08:37)
[2021-07-17] MEDS: prenatal vitamin Capsule 1 CAP PO (08:37)
[2021-07-17 09:34] VITALS: BP 112/64; PULSE 88; RESP 17; TEMP 36.8; O2SAT 97
--- NOTE | 2021-07-17 11:16 | PM.DCS ---
Discharge Providers Date of Admission: 07/15/21 23:57 Date of Discharge: July 17, 2021 Attending Provider at Admission: Fallon Lang MD Attending Provider at Discharge: Fallon Lang MD Primary Care Provider: Fallon Lang MD Diagnoses at Discharge Discharge Diagnosis (1) (normal spontaneous vaginal delivery): Status: Acute Reason for Visit Reason for Visit: VAGINAL BLEEDING Hospital Course Hospital Course This is a 26-year-old G3 now P3 who was admitted in active labor. She had a normal spontaneous vaginal delivery of a viable female . Mother and have done well after delivery. Mother is ambulating, tolerating a regular diet, has essentially no pain and very minimal vaginal bleeding. She is comfortable with discharge home. Physical Exam Narrative: EXAM NARRATIVE: Alert and oriented, sitting up in bed holding baby, heart regular rate and rhythm, lungs clear to auscultation bilaterally, abdomen soft nontender, fundus firm U- 3, no extremity tenderness. Discharge Data Studies Completed and Pending Laboratory Results WBC 12.3 10^3/uL (4.0-10.0) H 07/17/21 00:01 RBC 3.29 10^6/uL (4.1-5.3) L 07/17/21 00:01 Hgb 10.7 g/dL (11.5-15.3) L 07/17/21 00:01 Hct 31.8 % (37.0-47.0) L 07/17/21 00:01 MCV 96.7 fl (81-99) 07/17/21 00:01 MCH 32.5 pg (28.0-34.0) 07/17/21 00:01 MCHC 33.6 g/dL (30.0-36.0) 07/17/21 00:01 RDW 12.8 % (12.1-15.1) 07/17/21 00:01 Plt Count 192 10^3/cmm (130-400) 07/17/21 00:01 MPV 10.1 fL (7.4-10.4) 07/17/21 00:01 Neut % (Auto) 71.6 % 07/16/21 00:15 Lymph % (Auto) 18.9 % 07/16/21 00:15 Gove % (Auto) 6.0 % 07/16/21 00:15 Eos % (Auto) 2.4 % 07/16/21 00:15 Baso % (Auto) 0.4 % 07/16/21 00:15 Neut # (Auto) 9.44 10^3/uL (1.8-7.7) H 07/16/21 00:15 Lymph # (Auto) 2.5 10^3/uL (0.8-4.8) 07/16/21 00:15 Gove # (Auto) 0.8 10^3/uL (0.2-0.9) 07/16/21 00:15 Eos # (Auto) 0.3 10^3/uL (0.0-0.8) 07/16/21 00:15 Baso # (Auto) 0.1 10^3/uL (0.0-0.1) 07/16/21 00:15 Nucleated RBC % (auto) 0 % 07/16/21 00:15 Nucleated RBCs # 0.0 /100WBC 07/16/21 00:15 Insulin-like GF I Negative 07/15/21 21:50 Vitals Last Vital Signs Temp 98.2 F 07/17/21 09:34 Pulse 88 07/17/21 09:34 Resp 17 07/17/21 09:34 BP 112/64 07/17/21 09:34 Pulse Ox 97 07/17/21 09:34 Discharge Plan Discharge Condition: Stable Prescriptions: No Action Gummies 400 mcg-35 mg- 25 mg-5 mg Tablet,Chewable 1 tab PO DAILY 0RF Discharge Orders: Discharge Order (Routine); Ordered 07/17/21 Ordered By: Fallon Lang Referrals: Fallon Lang MD [Primary Care Provider] - 1 month Discharge Diet: Usual diet Discharge Activity: Limit activity as instructed Patient Instructions: Depression (DC), Bleeding (DC), Preeclampsia and Eclampsia After Delivery (GEN), Vaginal Delivery (DC), OB Discharge Report, OB Food/Drug Interaction Guide, Opioid Safety, OB Home Care, OB Proud Parent Packet Discharge Attestations Time Spent in Discharge Care*: less than 30 min Quality Metrics Clinical Quality Measures [ No reported AMI, CVA or VTE this stay] Coding Level of Care Code Acute Chg FW DC note Diagnoses (normal spontaneous vaginal delivery) O80
[2021-07-17 12:57] VITALS: BP 112/84; PULSE 88; RESP 17; TEMP 36.8; O2SAT 99
[2021-07-17 13:20] VITALS: BP 112/84; PULSE 88; RESP 17; TEMP 36.8; O2SAT 99
== END 2021-07-17 13:17 | disposition home or self-care (01) | DRG 807 ==
LOC: OPOB 07-16 00:02 → OBGYN 07-16 00:02
PROVIDERS: Admitting Provider Family Medicine; PCP Family Medicine; Visit Provider Family Medicine
DX: O67.9 Intrapartum hemorrhage, unspecified (principal); Z37.0 Single live birth; O99.334 Smoking (tobacco) complicating childbirth; F17.210 Nicotine dependence, cigarettes, uncomplicated; Z3A.39 39 weeks gestation of pregnancy; O70.0 First degree perineal laceration during delivery
CPT/HCPCS: 36415; 59025; 59409; 84112; 85025; 85027; 99211

== ENCOUNTER 2022-07-01 16:29 | Outpatient (CLI) | payer BC, MEDICAID, SELFPAY ==
--- NOTE | 2022-07-01 | US_ITS ---
WS: [id number] OBSTETRICAL ULTRASOUND COMPLETE HISTORY: ANATOMY COMPARISON: None available. Single intrauterine gestation in breech presentation. Cervix is Closed and normal length. Cervical length is 3.1 cm. Normal amount of amniotic fluid surrounds the fetus. Placenta: Fundal and anterior. No previa or abruption. Placenta grade 1 Heart: 150 BPM. Four chambers are identified. RIGHT and LEFT outflow tracts are unremarkable. Anatomy: Intracranial structures are poorly visualized. This is probably due to position of the fetus . Spine is posterior during the examination. Stomach and bladder negative. Kidneys are poorly visuali zed. Abdominal wall, three-vessel cord and cord insertion site are normal. 4 extremities are present. profile: Not visualized. Gender: Male. measurements: BPD = 4.8 cm = 20w3d HC = 17.8 cm = 20w2d AC = 16.0 cm = 21w1d FL = 3.6 cm = 21w3d EFW: 400 g. Biometry is internally concordant. AGA by ultrasound: 20w6d CHAVEZ by ultrasound: 11/12/2022 US/US OB >= 14 weeks fetus [id number] IMPRESSION: 1. Single intrauterine gestation of 20w6d with an CHAVEZ of 11/12/2022. 2. Limited evaluation of the intracranial structures, spine, kidneys and profile. The remaining anatomy is negative. Consider short-term follow-up in 2 weeks.
== END 2022-07-01 16:30 | disposition home or self-care (01) ==
LOC: RAD 16:29
PROVIDERS: PCP Family Medicine; Visit Provider Family Medicine
DX: Z34.81 Encounter for supervision of other normal pregnancy, first trimester (principal)
CPT/HCPCS: 76805

== ENCOUNTER 2022-07-18 09:42 | Outpatient (CLI) | payer BC, MEDICAID, SELFPAY ==
--- NOTE | 2022-07-18 09:52 | US_ITS ---
WS: [id number] ULTRASOUND OB FOCUSED HISTORY: FOLLOW UP U/S OF ANATOMY, reevaluation intracranial structures, spine, kidneys and pro file. COMPARISON: 07/01/2022 Single intrauterine gestation identified in breech position. Cervix is closed at 3.4 cm. Placenta: Anterior and fundal. No previa. Placenta grade 1. heart rate at 153 BPM. Normal intracranial structures. spine is posterior during the examination but there is no splay ing of the lamina. The overlying skin appears intact. Small amount of fluid in the renal pelves, less than 4 mm. The urinary bladder was not imaged. Normal profile. [place] [id number] IMPRESSION: 1. Follow up evaluation of the intracranial structures and spine are normal. N ormal profile. 2. Both kidneys are identified. Very minimal fluid in the renal pelves is cons idered within normal limits and not hydronephrosis for this age.
== END 2022-07-18 09:43 | disposition home or self-care (01) ==
LOC: RAD 09:43
PROVIDERS: PCP Family Medicine; Visit Provider Family Medicine
DX: Z36.2 Encounter for other antenatal screening follow-up (principal)
CPT/HCPCS: 76816

== ENCOUNTER 2022-11-03 19:47 | Outpatient (CLI) | payer BC, MEDICAID, SELFPAY ==
[2022-11-03 19:45] VITALS: BMI 43.2
[2022-11-03 19:54] VITALS: BP 142/75; PULSE 94
[2022-11-03 20:00] VITALS: TEMP 35
[2022-11-03 20:20] VITALS: BP 135/75; PULSE 94
[2022-11-03 20:30] VITALS: BP 135/75; PULSE 94
== END 2022-11-03 20:40 | disposition home or self-care (01) ==
LOC: OPOB 19:48 → OBGYN 19:48
PROVIDERS: PCP Family Medicine; Visit Provider Family Medicine
DX: O26.899 Other specified pregnancy related conditions, unspecified trimester (principal); R10.9 Unspecified abdominal pain; Z3A.00 Weeks of gestation of pregnancy not specified
CPT/HCPCS: 59025; 99211

== ENCOUNTER 2022-11-07 16:59 | Inpatient (IN) | payer BC, MEDICAID, SELFPAY ==
[2022-11-07] VITALS (26 sets, daily range): BP systolic 119–204; BP diastolic 63–108; PULSE 69–122; RESP 15–16; TEMP 36.3; BMI 43.2
[2022-11-07] MEDS: dextrose 5%-lactated ringers 1,000 ML 125 ML IV (17:04)
[2022-11-07 17:34] LABS: Basophils # 0.1 10^3/uL (0.0-0.1); Basophils % 0.5 %; Eosinophils # 0.2 10^3/uL (0.0-0.8); Eosinophils % 1.6 %; Hematocrit 39.2 % (37.0-47.0); Hemoglobin 13.3 g/dL (11.5-15.3); Lymphocytes # 1.5 10^3/uL (0.8-4.8); Lymphocytes % 16.5 %; Mean Corpuscular HGB Conc 33.9 g/dL (30.0-36.0); Mean Corpuscular Hemoglobin 32.1 pg (28.0-34.0); Mean Corpuscular Volume 94.7 fl (81-99); Mean Platelet Volume 11.3 fL (7.4-10.4); Monocytes # 0.6 10^3/uL (0.2-0.9); Monocytes % 6.2 %; Neutrophils # 6.89 10^3/uL (1.8-7.7); Neutrophils % 74.7 %; Nucleated Red Blood Cells % 0 %; Platelet Count 191 10^3/cmm (130-400); Red Blood Count 4.14 10^6/uL (4.1-5.3); Red Cell Distribution Width 13.2 % (12.1-15.1); White Blood Count 9.2 10^3/uL (4.0-10.0)
[2022-11-07 18:13] LABS: Glucose Urine UA 1+ (Normal); Protein Urine Trace (Negative); Urine Appearance Cloudy (CLEAR); Urine Color Yellow (Yellow); pH Urine 5 (5-7)
[2022-11-07 18:14] LABS: Add Urine Culture? No; Add Urine Microscopic? YES; Bacteria Urine 1+ /hpf; Bilirubin Urine 1+ (Negative); Blood Urine Neg (Negative); Ketones Urine 1+ (Negative); Leukocyte Esterase Urine 2+ (Negative); Nitrate Urine Negative (Negative); RBC Urine 0-4 /hpf (0-2); Squamous Epithelial Cell Urine 25-40 /hpf (0-5); Urobilinogen Urine 4 mg/dL (Negative); WBC Urine 25-40 /hpf (0-5)
[2022-11-07 18:32] LABS: Urine Creatinine 222 mg/dL (28-217)
[2022-11-07 18:34] LABS: UPRO/UCREAT Ratio 0.15 mg/mg CR; Urine Protein Random 33 mg/dL
[2022-11-07 19:08] LABS: Alanine Aminotransferase 12 U/L (0-33); Albumin Level 3.1 g/dL (3.5-5.2); Alkaline Phosphatase 146 U/L (35-105); Anion Gap 11.9 (5-19); Aspartate Amino Transferase 16 U/L (0-32); Blood Urea Nitrogen 7 mg/dL (6-20); Calcium 8.3 mg/dL (8.5-10.5); Carbon Dioxide 22 mmol/L (22-29); Chloride 104 mmol/L (98-107); Globulin 2.7 g/dL (1.3-4.6); Glomerular Filtration Rate 145.9 mL/min (90-130); Glucose 98 mg/dL (65-115); Osmolality Calculated 276 mOsm/kg (285-295); Potassium 3.9 mmol/L (3.5-5.1); Sodium 134 mmol/L (136-145); Total Bilirubin 0.3 mg/dL (0.15-1.2); Total Protein 5.8 g/dL (6.6-8.7); Uric Acid 3.2 mg/dL (2.4-5.7)
--- NOTE | 2022-11-07 19:47 | P.HPUD_ITS ---
Labor & Delivery H&P Update Date of Procedure: November 07, 2022 Date H&P Performed: 11/02/22 Admission Diagnosis: IUP at 39 weeks 4 days gestation -induced hypertension Planned procedure: Induction of labor and delivery Other information: This is a 27-year-old G4, P3 at 39 weeks 4 days gestation who presented to labor and delivery complaining of contractions. She was not found to be shantel regularly and had not made cervical change however she had consistently elevated blood pressures in the 140s systolic. Since she was already at term decision wa s made to go ahead and proceed with induction. Her cervix was favorable so she was being started on Pitocin.
[2022-11-07] MEDS: lidocaine 2% INJ 20 mL INJECTION (21:18)
--- NOTE | 2022-11-07 21:34 | P.PCNOB_ITS ---
Delivery Note: Date of delivery: November 07, 2022 Pre-delivery diagnoses: -induced hypertension at 39 weeks gestation IUP at 39 weeks 4 days gestation Procedure: Normal spontaneous vaginal delivery Estimated blood loss (mL): 225 Pre-Delivery Course: The patient had routine care at [facility]. She is blood type a positive, antibody negative, hepatitis B nonreactive, hepatitis C nonreactive, HIV nonreactive, rubella immune, GC chlamydia negative, urine drug screen negative, RPR negative, she passed her glucose tolerance test, she was GBS negative. There were no complications during the Delivery: This is a 27-year-old G4, P3 at 39 weeks 4 days gestation who presented to labor and delivery complaining of contractions. She was not shantel regularly and did not make cervical change however her systolic blood pressures were elevated and she was diagnosed with -induced hypertension. Since she was already 39 weeks gestation decision was made to go ahead and induce. Her cervix was favorable and she was started on Pitocin. She declined pain management. She underwent artificial rupture of membranes approximately 1-1/2 hours prior to delivery. She had a normal spontaneous vaginal delivery of a viable male weight 3280 g, 7 pounds 4 ounces, Apgars 8 and 9 over an intact perineum. The infant was suctioned at delivery and placed on the mother's chest. The cord was clamped and cut. The placenta was delivered grossly intact and normal to inspection. There was a second-degree perineal laceration that was sutured using 3-0 chromic. There was a first-degree clitoral laceration that was felt to be hemostatic with pressure. Mother and infant were doing well after delivery. Coding Level of Care Code Acute Code for Chg Fwd Diagnoses
[2022-11-07] MEDS: benzocaine-menthol 78 gm Canister 1 SPRAY TOPICAL (22:54)
[2022-11-07] MEDS: lanolin oint 7 gm 1 APPLIC TOPICAL (22:54)
[2022-11-08] VITALS (9 sets, daily range): BP systolic 109–136; BP diastolic 54–83; PULSE 56–90; RESP 14–18; TEMP 36.7–37; O2SAT 97–99
[2022-11-08] MEDS: ibuprofen 800 mg tablet PO ×2 (09:05→20:14)
[2022-11-08] MEDS: docusate sodium 100 mg Capsule PO ×2 (09:05→20:15)
[2022-11-08] MEDS: prenatal vitamin Capsule 1 CAP PO (09:05)
[2022-11-08 09:24] LABS: Hematocrit 34.6 % (37.0-47.0); Hemoglobin 11.6 g/dL (11.5-15.3); Mean Corpuscular HGB Conc 33.5 g/dL (30.0-36.0); Mean Corpuscular Hemoglobin 32.1 pg (28.0-34.0); Mean Corpuscular Volume 95.8 fl (81-99); Mean Platelet Volume 10.7 fL (7.4-10.4); Platelet Count 157 10^3/cmm (130-400); Red Blood Count 3.61 10^6/uL (4.1-5.3); White Blood Count 8.5 10^3/uL (4.0-10.0)
--- NOTE | 2022-11-08 17:05 | P.DS_ITS ---
Discharge Providers Date of Admission: 11/07/22 16:59 Date of Discharge: November 08, 2022 Attending Provider at Admission: Fallon Lang MD Attending Provider at Discharge: Fallon Lang MD Primary Care Provider: Fallon Lang MD Reason for Visit Reason for Visit: Contractions Hospital Course Hospital Course This is a 27-year-old G4 now P4 who was admitted for induction secondary to new onset -induced hypertension at 39 weeks 4 days gestation. She had a normal spontaneous vaginal delivery of a viable male . Her blood pressures were only mildly elevated. She had a couple severe blood pressures but this was only during end-stage labor and she declined pain management. She has been ambulating, tolerating a regular diet, has average vaginal bleeding and is comfortable with discharge home. Physical Exam Narrative: Alert and oriented, sitting up in bed breast-feeding, heart regular rate and rhythm, lungs clear to auscultation bilaterally, abdomen is soft and nontender, fundus is firm and U -2, extremities have no calf tenderness Discharge Data Studies Completed and Pending Laboratory Results WBC 8.5 10^3/uL (4.0-10.0) 11/08/22 09:10 RBC 3.61 10^6/uL (4.1-5.3) L 11/08/22 09:10 Hgb 11.6 g/dL (11.5-15.3) 11/08/22 09:10 Hct 34.6 % (37.0-47.0) L 11/08/22 09:10 MCV 95.8 fl (81-99) 11/08/22 09:10 MCH 32.1 pg (28.0-34.0) 11/08/22 09:10 MCHC 33.5 g/dL (30.0-36.0) 11/08/22 09:10 RDW 13.0 % (12.1-15.1) 11/08/22 09:10 Plt Count 157 10^3/cmm (130-400) 11/08/22 09:10 MPV 10.7 fL (7.4-10.4) H 11/08/22 09:10 Neut % (Auto) 74.7 % 11/07/22 16:45 Lymph % (Auto) 16.5 % 11/07/22 16:45 Coleman % (Auto) 6.2 % 11/07/22 16:45 Eos % (Auto) 1.6 % 11/07/22 16:45 Baso % (Auto) 0.5 % 11/07/22 16:45 Neut # (Auto) 6.89 10^3/uL (1.8-7.7) 11/07/22 16:45 Lymph # (Auto) 1.5 10^3/uL (0.8-4.8) 11/07/22 16:45 Coleman # (Auto) 0.6 10^3/uL (0.2-0.9) 11/07/22 16:45 Eos # (Auto) 0.2 10^3/uL (0.0-0.8) 11/07/22 16:45 Baso # (Auto) 0.1 10^3/uL (0.0-0.1) 11/07/22 16:45 Nucleated RBC % (auto) 0 % 11/07/22 16:45 Nucleated RBCs # 0.0 /100WBC 11/07/22 16:45 Sodium 134 mmol/L (136-145) L 11/07/22 18:38 Potassium 3.9 mmol/L (3.5-5.1) 11/07/22 18:38 Chloride 104 mmol/L (98-107) 11/07/22 18:38 Carbon Dioxide 22 mmol/L (22-29) 11/07/22 18:38 Anion Gap 11.9 (5-19) 11/07/22 18:38 BUN 7 mg/dL (6-20) 11/07/22 18:38 Creatinine 0.5 mg/dL (0.5-0.9) 11/07/22 18:38 GFR Calculation 145.9 mL/min (90-130) H 11/07/22 18:38 Glucose 98 mg/dL (65-115) 11/07/22 18:38 Calculated Osmolality 276 mOsm/kg (285-295) L 11/07/22 18:38 Uric Acid 3.2 mg/dL (2.4-5.7) 11/07/22 18:38 Calcium 8.3 mg/dL (8.5-10.5) L 11/07/22 18:38 Total Bilirubin 0.3 mg/dL (0.15-1.2) 11/07/22 18:38 AST 16 U/L (0-32) 11/07/22 18:38 ALT 12 U/L (0-33) 11/07/22 18:38 Alkaline Phosphatase 146 U/L (35-105) H 11/07/22 18:38 Total Protein 5.8 g/dL (6.6-8.7) L 11/07/22 18:38 Albumin 3.1 g/dL (3.5-5.2) L 11/07/22 18:38 Globulin 2.7 g/dL (1.3-4.6) 11/07/22 18:38 Urine Color Yellow (Yellow) 11/07/22 15:20 Urine Appearance Cloudy (CLEAR) A 11/07/22 15:20 Urine pH 5 (5-7) 11/07/22 15:20 Ur Specific [place] 1.030 (1.005-1.030) 11/07/22 15:20 Urine Protein Trace (Negative) 11/07/22 15:20 Urine Glucose (UA) 1+ (Normal) H 11/07/22 15:20 Urine Ketones 1+ (Negative) H 11/07/22 15:20 Urine Blood Neg (Negative) 11/07/22 15:20 Urine Nitrate Negative (Negative) 11/07/22 15:20 Urine Bilirubin 1+ (Negative) H 11/07/22 15:20 Urine Urobilinogen 4 mg/dL (Negative) H 11/07/22 15:20 Ur Leukocyte Esterase 2+ (Negative) H 11/07/22 15:20 Urine RBC 0-4 /hpf (0-2) H 11/07/22 15:20 Urine WBC 25-40 /hpf (0-5) H 11/07/22 15:20 Ur Squamous Epith Cells 25-40 /hpf (0-5) H 11/07/22 15:20 Amorphous Sediment Not Reportable 11/07/22 15:20 Urine Bacteria 1+ /hpf (NONE) H 11/07/22 15:20 U Random Total Protein 33 mg/dL 11/07/22 15:20 Urine Creatinine 222 mg/dL (28-217) H 11/07/22 15:20 Protein/Creatinin Ratio 0.15 mg/mg CR 11/07/22 15:20 Vitals Last Vital Signs Temp 98.0 F 11/08/22 16:22 Pulse 80 11/08/22 16:22 Resp 18 11/08/22 05:15 BP 128/83 11/08/22 16:22 Pulse Ox 97 11/08/22 16:22 O2 Del Method Room Air 11/08/22 08:39 Discharge Plan Discharge Patient Disposition: Home Condition: Stable Prescriptions: Continued Gummies 400 mcg-35 mg- 25 mg-5 mg Tablet,Chewable 1 tab PO DAILY Discharge Orders: Discharge Order (Routine); Ordered 11/08/22 Ordered By: Fallon Lang Referrals: Fallon Lang MD [Primary Care Provider] - 1 month Discharge Diet: Usual diet Discharge Activity: Limit activity as instructed Patient Instructions: Opioid Safety Activity Restrictions/Additional Instructions: Nothing per vagina for 6 weeks Discharge Attestations Time Spent in Discharge Care*: less than 30 min Quality Metrics Clinical Quality Measures [ No reported AMI, CVA or VTE this stay] Coding Level of Care Code Acute Code for Chg Fwd Diagnoses
== END 2022-11-08 23:15 | disposition home or self-care (01) | DRG 807 ==
LOC: OPOB 16:59 → OBGYN 16:59
PROVIDERS: Admitting Provider Family Medicine; PCP Family Medicine; Visit Provider Family Medicine
DX: O13.4 Gestational [pregnancy-induced] hypertension without significant proteinuria, complicating childbirth (principal); Z37.0 Single live birth; Z3A.39 39 weeks gestation of pregnancy; O70.1 Second degree perineal laceration during delivery; O70.0 First degree perineal laceration during delivery
CPT/HCPCS: 36415; 59025; 59409; 80053; 81001; 82570; 84156; 84550; 85025; 85027; 99211; J7040; J7121

== ENCOUNTER → 2023-09-07 18:01 | Outpatient (BNVA) | payer BC, MEDICAID, SELFPAY | PROVIDERS: PCP Family Medicine; Visit Provider Physician Assistant | DX: J02.9 Acute pharyngitis, unspecified (principal) | CPT/HCPCS: 87071; 87880 ==

== ENCOUNTER 2023-12-05 20:09 | Emergency (ER) | payer BC, MEDICAID, SELFPAY ==
--- NOTE | 2023-12-05 20:11 | XRR_ITS ---
PROCEDURE INFORMATION: Exam: XR Chest Exam date and time: 12/05/2023 8:31 PM Age: 28 years old Clinical indication: Cough and shortness of breath; Additional info: SOB TECHNIQUE: Imaging protocol: Radiologic exam of the chest. Views: 1 view. COMPARISON: CR XR chest 1V portable [id number] 08/12/2019 1:00 AM FINDINGS: Lungs: Unremarkable. No consolidation. Pleural spaces: Unremarkable. No pleural effusion. No pneumothorax. Heart/Mediastinum: Unremarkable. No cardiomegaly. Bones/joints: Unremarkable. XR/XR chest 1V portable [id number] IMPRESSION: No acute findings.
[2023-12-05 20:20] VITALS: BP 121/81; PULSE 96; RESP 16; TEMP 36.8; O2SAT 95
--- NOTE | 2023-12-05 20:31 | W.ED.URI ---
HPI - URI/Sore Throat General: Chief Complaint: Upper Respiratory Infection Stated Complaint: SOB,Fever Time Seen by Provider: 12/05/23 20:14 Source: patient Mode of arrival: ambulatory Limitations: no limitations History of Present Illness: 28-year-old female who states that over the last week she been having cough congestion along with wheezing. She states she has had some shortness of breath as well she does have a history of smoking. She is afebrile here states her kids been sick with the same. Denies any chest pain she has had bronchitis in the past Associated symptoms: Reports fever(s); Deny abdominal pain, chills, chest pain, diarrhea, headache(s), nausea or vomiting Review of Systems Const: Reports: fever(s); Denies: chills, body aches or change in appetite ENMT: Denies: throat pain or dental pain Card: Denies: chest pain Resp: Reports: dyspnea, non-productive cough and wheezing GI: Denies: abdominal pain, nausea, vomiting or diarrhea : Denies: dysuria Musc: Denies: neck pain or back pain Skin/Breast: Denies: rash Neuro: Denies: headache(s) PFSH ED PFSH: Medical History Intractable headache Hypertension Migraines Surgical History No history of previous surgery Family History Mother Stroke Social History Smoking and tobacco/nicotine status: former use of tobacco/nicotine Physical Exam Const: COMMON NORMALS: no acute distress, patient oriented x3 and healthy appearing HENMT: COMMON NORMALS: normocephalic and atraumatic HEAD & SCALP: normocephalic and atraumatic Eye: COMMON NORMALS: Equal, round and reactive pupils present and EOMs intact bilaterally PUPIL: Yes Equal, round and reactive pupils present Neck/C-Spine: COMMON NORMALS: full ROM and supple Chest: COMMONS NORMALS: normal inspection of the chest Resp: COMMON NORMALS: normal respiratory effort, No retractions and No use of accessory muscles AUSCULTATION: wheezes Cardio: COMMON NORMALS: regular rate, regular rhythm and No murmurs present (Cardio) RATE: regular rate RHYTHM: regular rhythm Extremity: COMMON NORMALS: normal to inspection and full ROM Neuro: COMMON NORMALS: patient oriented x3, moves all extremities and no focal motor deficits Psych: COMMON NORMALS: mental status grossly normal, Normal thought process present and cooperative THOUGHT PROCESS: Normal thought process present Skin: COMMON NORMALS: no rashes or lesions noted and no wounds GENERAL SKIN EXAM: no rashes or lesions noted Course Vital Signs: Vital signs: Vital Signs Temperature 98.3 F 12/05/23 21:21 Pulse Rate 98 12/05/23 21:21 Respiratory Rate 16 12/05/23 21:21 Blood Pressure 119/79 12/05/23 21:21 Pulse Oximetry 98 12/05/23 21:21 Oxygen Delivery Me thod Room Air 12/05/23 20:50 MDM - URI/Sore Throat Medical Decision Making Patient presents here with cough congestion likely bronchitis x-ray shows no severe pneumonia she is in minimal distress here did give her Decadron will prescribe her an albuterol inhaler along with Z-Deonte she is follow-up with PCP and return if worsening. Medical Records I reviewed the patient's medical records. XR interpretation done by ED provider, pending radiology final review ED provider radiology interpretation(s): Chest x-ray no acute abnormality Discharge Plan Discharge Patient Disposition: Home Clinical Impression: Upper respiratory infection, Bronchitis Condition: Stable Prescriptions: New albuterol sulfate 90 mcg/actuation HFA aerosol inhaler 2 inh INHALATION Q6H PRN (Reason: shortness of breath or wheezing) Qty: 8 0RF azithromycin 250 mg tablet See Rx Instructions PO .COMPLEX Qty: 6 0RF Rx Instructions: take 500 mg today (day 1), then 250 mg for 4 days (days 2-5) No Action escitalopram oxalate 10 mg tablet 10 mg PO DAILY albuterol sulfate [Ventolin HFA] 90 mcg/actuation HFA aerosol inhaler 2 puff inhalation Q4H PRN (Reason: shortness of breath or wheezing) Qty: 8.5 0RF Discharge Orders: Discharge ED (Routine); Ordered 12/05/23 Ordered By: Hesham Knight Referrals: Fallon Lang MD [Primary Care Provider] - 4-7 days Discharge Diet: Advance as tolerated Discharge Activity: Resume usual activity Patient Instructions: Acute Bronchitis (ED) Coding Level of Care Code ED Forensic Pathologist for [place]
[2023-12-05] MEDS: dexamethasone 10 mg/mL INJ IM (20:39)
[2023-12-05 20:50] VITALS: PULSE 110; RESP 18; O2SAT 95
[2023-12-05] MEDS: albuterol 8 gm MDI 2 PUFF INHALATION (20:50)
[2023-12-05 21:21] VITALS: BP 119/79; PULSE 98; RESP 16; TEMP 36.8; O2SAT 98
== END 2023-12-05 21:19 | disposition home or self-care (01) ==
PROVIDERS: Emergency Provider Emergency Medicine; PCP Family Medicine
DX: J06.9 Acute upper respiratory infection, unspecified (principal); J40 Bronchitis, not specified as acute or chronic; Z87.891 Personal history of nicotine dependence; I10 Essential (primary) hypertension
CPT/HCPCS: 71045; 94640; 96372; 99284; J1100; J3535

== ENCOUNTER 2025-04-22 15:08 | Emergency (ER) | payer BC, MEDICAID, SELFPAY ==
[2025-04-22 15:12] VITALS: BP 121/84; PULSE 87; RESP 16; TEMP 36.7; O2SAT 98; BMI 36.6
--- NOTE | 2025-04-22 15:21 | XR_ITS ---
WS: [id number] Exam: XR chest 1V portable [id number] Date/Time of Exam: 04/22/2025 3:27 PM Reason For Exam: sob Comparison 12/05/2023. Lungs are fully expanded and clear. Normal cardiomediastinal silhouette and regional bony elements. No pleural effusion. XR/XR chest 1V portable [id number] IMPRESSION: 1. Normal chest.
--- NOTE | 2025-04-22 15:21 | ECG_ITS ---
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
--- NOTE | 2025-04-22 15:22 | W.ED.CHESTPA ---
HPI - Chest Pain General: Chief Complaint: Chest Pain Stated Complaint: slight sob,feels like heart is being slow,fatigue Time Seen by Provider: 04/22/25 15:21 History of Present Illness: 30-year-old female presents emergency room complaining of palpitations chest discomfort takes a deep breath. At times she feels like her heart rate is going slow. She has had previous episodes of this that she has not been evaluated for. Her mother's boyfriend had some form of sudden cardiac that she is hyperacute to these symptoms. She has not had any known history of arrhythmias no history of DVTs or PEs has not any hemoptysis no recent illness cough fever sweats or chills. Associated symptoms: Reports palpitations; Deny abdominal pain, dyspnea or fever(s) Related Data Home Medications ?Medication ?Instructions ?Recorded ?Confirmed No Known Home Medications 04/21/25 04/22/25 Allergies Allergy/AdvReac Type Severity Reaction Status Date / Time codeine Allergy ALGY-Hives Verified 04/21/25 08:24 Review of Systems Const: Denies: fever(s) or chills Card: Reports: chest pain and palpitations Resp: Denies: dyspnea GI: Denies: abdominal pain : Denies: dysuria, urinary frequency or urinary urgency Musc: Denies: neck pain or back pain Skin/Breast: Denies: rash PFSH ED PFSH: Medical History Intractable headache Hypertension Migraines Surgical History No history of previous surgery Family History Mother Stroke Social History Smoking and tobacco/nicotine status: current every day tobacco/nicotine user cigarettes Packs smoked per day: 0.5 Years cigarettes smoked: 12 Quit status (tobacco/nicotine): considering quitting Alcohol intake: current Alcohol intake frequency: holidays/special occasions only Substance/Drug Use: never Female Reproductive History: Date of last menstrual period: 04/10/25 Physical Exam Const: COMMON NORMALS: no acute distress GENERAL APPEARANCE: cooperative and comfortable ORIENTATION/CONSCIOUSNESS: Yes awake, Yes oriented to person, Yes oriented to place and Yes oriented to time HENMT: COMMON NORMALS: normocephalic, atraumatic and hearing grossly normal bilaterally HEAD & SCALP: normocephalic and atraumatic Resp: COMMON NORMALS: normal respiratory effort, No retractions, No use of accessory muscles and clear to auscultation bilaterally AUSCULTATION: clear to auscultation bilaterally Cardio: COMMON NORMALS: regular rate, regular rhythm and No murmurs present (Cardio) RATE: regular rate RHYTHM: regular rhythm GI: COMMON NORMALS: Soft to palpation and No hepatosplenomegaly present AUSCULTATION: Yes normoactive bowel sounds PALPATION: Yes Soft to palpation, No Tenderness to palpation present (GI), No Guarding due to palpation present (GI) and Yes No hepatosplenomegaly present Extremity: COMMON NORMALS: normal to inspection, capillary refill normal, no clubbing, cyanosis or edema, no calf tenderness and no pedal edema Neuro: SENSORIUM/ORIENTATION: Yes oriented to person, Yes oriented to place and Yes oriented to time Skin: COMMON NORMALS: no rashes or lesions noted GENERAL SKIN EXAM: no rashes or lesions noted Course Vital Signs: Vital signs: Vital Signs Temperature 98.1 F 04/22/25 15:12 Pulse Rate 87 04/22/25 15:12 Respiratory Rate 16 04/22/25 15:12 Blood Pressure 121/84 04/22/25 15:12 Pulse Oximetry 98 04/22/25 15:12 Oxygen Delivery Me thod Room Air 04/22/25 15:12 MDM - Chest Pain Medical Decision Making Patient seen evaluated laboratories including CBC BMP and TSH. Evaluate for arrhythmias electrolyte abnormalities anemias hypothyroidism hyperthyroidism. Reviewed findings with the patient. EKG was normal laboratory test unremarkable TSH low end but in the normal range at this time. Discharge home will set up for an outpatient Holter monitor and follow-up with her primary care doctor Medical Records I reviewed the patient's medical records. Lab Data I reviewed the patient's lab results. 04/22/25 15:34 04/22/25 15:34 Radiology Impressions Chest X-Ray 04/22/25 15:21 IMPRESSION: 1. Normal chest. Laboratory Results WBC 8.71 10^3/uL (3.29-11.43) 04/22/25 15:34 RBC 4.77 10^6/uL (3.85-5.65) 04/22/25 15:34 Hgb 15.50 g/dL (11.27-16.99) 04/22/25 15:34 Hct 45.0 % (36-47) 04/22/25 15:34 MCV 94.3 fl (85-98) 04/22/25 15:34 MCH 32.5 pg (27-33) 04/22/25 15:34 MCHC 34.4 g/dL (30-55) 04/22/25 15:34 RDW 11.8 % (12.1-15.1) L 04/22/25 15:34 Plt Count 288 10^3/cmm (157-399) 04/22/25 15:34 MPV 10.6 fL (7.4-10.4) H 04/22/25 15:34 Neut % (Auto) 62.4 % 04/22/25 15:34 Lymph % (Auto) 26.2 % 04/22/25 15:34 [place] % (Auto) 4.9 % 04/22/25 15:34 Eos % (Auto) 5.5 % 04/22/25 15:34 Baso % (Auto) 0.8 % 04/22/25 15:34 Neut # (Auto) 5.43 10^3/uL (1.8-7.7) 04/22/25 15:34 Lymph # (Auto) 2.3 10^3/uL (0.8-4.8) 04/22/25 15:34 [place] # (Auto) 0.4 10^3/uL (0.2-0.9) 04/22/25 15:34 Eos # (Auto) 0.5 10^3/uL (0.0-0.8) 04/22/25 15:34 Baso # (Auto) 0.1 10^3/uL (0.0-0.1) 04/22/25 15:34 Nucleated RBC % (auto) 0 % 04/22/25 15:34 Nucleated RBCs # 0.0 /100WBC 04/22/25 15:34 Sodium 138 mmol/L (136-145) 04/22/25 15:34 Chloride 102 mmol/L (98-107) 04/22/25 15:34 Carbon Dioxide 25 mmol/L (22-29) 04/22/25 15:34 Creatinine 0.6 mg/dL (0.5-0.9) 04/22/25 15:34 GFR Calculation 115.9 mL/min (90-130) 04/22/25 15:34 Glucose 87 mg/dL (65-115) 04/22/25 15:34 Calcium 9.4 mg/dL (8.5-10.5) 04/22/25 15:34 TSH 0.51 uIU/mL (0.27-4.20) 04/22/25 15:34 All radiology interpretation(s) finalized by discharge EKG Data EKG 1: I personally reviewed and interpreted this EKG as follows: Interpretation: EKG 04/22/2025 1513 sinus rhythm rate of 73. [place] 130 QTc [address] changes noted. No ST depression or T wave inversion. No EKG available for comparison. Discharge Plan Discharge Patient Disposition: Home Clinical Impression: Palpitations Condition: Stable Prescriptions: No Action No Known Home Medications Discharge Orders: Discharge ED (Routine); Ordered 04/22/25 Ordered By: Terrance Pierre Referrals: Fallon Lang MD [Primary Care Provider, Family Practice] Discharge Diet: Usual diet Discharge Activity: Resume usual activity Patient Instructions: Opioid Safety, Pain Management, Patient Portal & Von Instructions Activity Restrictions/Additional Instructions: Thank you for choosing [facility] for your healthcare needs today. It is very important that you follow up as instructed or that you return to the Emergency Department should you have concerns or if your condition changes or worsens in any way. Emergency department visits are focused on emergent conditions, in some cases you may require further evaluation on an outpatient basis. You were seen in the emergency room with complaints of palpitations. Your CBC chemistries and thyroid panel are normal. Chest x-ray is also normal your EKG did not show any acute changes. Will set you up for an outpatient 72-hour Holter monitor and follow-up with your primary care doctor. No sign of any acute issues at this time. (Please note that included in your discharge packet is information concerning opioid safety and pain management. This information is given to all patients were discharged from the ER regardless of their discharge diagnosis or the medicines they usually take or are prescribed.) Print Language: Gabonese Coding Level of Care Code ED Candy Starch Mold Printer for Chg Fwd Heart Score HEART Score Components History: Slightly Suspicous EKG: Normal Age: Less than 45 yrs Risk Factors: No Risk Factors Known Troponin: Baseline Trop <16 ng/L (No specific chest pain troponin not done) HEART Score RESULT HEART Score: 0
[2025-04-22 15:42] LABS: Hematocrit 45.0 % (36-47); Hemoglobin 15.50 g/dL (11.27-16.99); Mean Corpuscular HGB Conc 34.4 g/dL (30-55); Mean Corpuscular Hemoglobin 32.5 pg (27-33); Mean Corpuscular Volume 94.3 fl (85-98); Nucleated Red Blood Cells % 0 %; Platelet Count 288 10^3/cmm (157-399); Red Blood Count 4.77 10^6/uL (3.85-5.65); White Blood Count 8.71 10^3/uL (3.29-11.43)
[2025-04-22 16:12] LABS: Blood Urea Nitrogen 5 mg/dL (6-20); Calcium 9.4 mg/dL (8.5-10.5); Carbon Dioxide 25 mmol/L (22-29); Chloride 102 mmol/L (98-107); Creatinine Clr Calc Pharmacy 168.7599; Glucose 87 mg/dL (65-115); Osmolality Calculated 283 mOsm/kg (285-295); Sodium 138 mmol/L (136-145); Thyroid Stimulating Hormone 0.51 uIU/mL (0.27-4.20)
[2025-04-22 16:15] LABS: Anion Gap 15.3 (5-19); Potassium 4.3 mmol/L (3.5-5.1)
[2025-04-22 16:30] VITALS: BP 131/79; PULSE 84; O2SAT 99
== END 2025-04-22 16:29 | disposition home or self-care (01) ==
PROVIDERS: Emergency Provider Family Medicine; PCP Family Medicine
DX: R00.2 Palpitations (principal); F17.210 Nicotine dependence, cigarettes, uncomplicated; I10 Essential (primary) hypertension
CPT/HCPCS: 36415; 71045; 80048; 84443; 85025; 93005; 99285